=== PATIENT | female | born 1955 | race Caucasian/White ===

== ENCOUNTER → 2018-05-16 | Outpatient (CLI) | payer BC ==
[~2018-05-16] MED LIST: TUMS300 MG PO
== END ==
LOC: RAD 13:14
DX: Z12.31 Encounter for screening mammogram for malignant neoplasm of breast (principal); E11.9 Type 2 diabetes mellitus without complications; I50.9 Heart failure, unspecified

== ENCOUNTER → 2020-09-08 | Outpatient (CLI) | payer BC | LOC: BC 13:00 | PROVIDERS: ATTEND Internal Medicine | DX: Z12.31 Encounter for screening mammogram for malignant neoplasm of breast (principal) ==

== ENCOUNTER → 2020-09-14 | Outpatient (CLI) | payer BC | LOC: BC 10:48 | PROVIDERS: ATTEND Obstetrics & Gynecology | DX: R92.1 Mammographic calcification found on diagnostic imaging of breast (principal) ==

== ENCOUNTER → 2021-03-10 | Outpatient (CLI) | payer OTHER | LOC: RAD 09:32 | PROVIDERS: ATTEND Specialist | DX: R92.1 Mammographic calcification found on diagnostic imaging of breast (principal) ==